=== PATIENT | male | born 1980 | race Caucasian/White ===

== ENCOUNTER 2024-04-01 01:44 | Emergency (ER) | payer MEDICAID ==
[~2024-04-01] VITALS: Ht 180.3 cm; Wt 104.3 kg
[2024-04-01] MEDS ORDERED: SULF1TAB48 PO (03:39)
[2024-04-01] MEDS ORDERED: SULFAMETH/TRIMETH 800/160 MG TABLET ONE (03:39)
[2024-04-01] MEDS ORDERED: AMOXICILLIN-CLAVUL 875-125MG TABLET ONE (03:39)
[2024-04-01] MEDS ORDERED: AMOX-430 PO (03:39)
[2024-04-01] MEDS: SULFAMETH/TRIMETH 800/160 MG TABLET PO ONE (03:47)
[2024-04-01] MEDS: AMOXICILLIN-CLAVUL 875-125MG TABLET PO ONE (03:47)
[2024-04-01 03:49] VITALS: BP 132/66; O2SAT 97
== END 2024-04-01 03:49 | disposition left against medical advice (07) ==
LOC: ER 01:56
DX: L03.114 Cellulitis of left upper limb (principal); Z79.899 Other long term (current) drug therapy
CPT/HCPCS: A4606; A4663